=== PATIENT | female | born 1935 | race Caucasian/White ===

== ENCOUNTER 2023-08-20 14:13 | Inpatient (IN) | payer OTHER ==
[2023-08-20 14:30] VITALS: BMI 28.3
[2023-08-20] MEDS ORDERED: NITROGLYCERIN SUBLINGUAL 1/150 0.4 MG TAB SL ONE (16:32)
[2023-08-20] MEDS ORDERED: LIDOCAINE 5% TOPICAL PATCH TP ONE (16:33)
[2023-08-20] MEDS ORDERED: ASPIRIN 81 MG CHEWABLE TABLETS PO ONE (16:33)
[2023-08-20] MEDS ORDERED: ASPIRIN 81 MG CHEWABLE TABLETS ONE (16:40)
[2023-08-20] MEDS ORDERED: NITROGLYCERIN SUBLINGUAL 1/150 0.4 MG TAB ONE (16:41)
[2023-08-20] MEDS ORDERED: LIDOCAINE 4% PATCH TP ONE (16:41)
[2023-08-20 17:01] LABS: BASO % 0.4 % (0-2.0); EOS % 1.6 % (0-4.5); HEMATOCRIT 34.7 % (32.4-45.2); HEMOGLOBIN 11.8 GM/dL (10.7-15.3); LYMPH % 14.5 % (8-40); MCH 31.8 pg (25.7-33.7); MEAN CELL VOLUME 93.5 fl (80-96); MEAN PLT VOLUME 8.6 fl (7.5-11.1); NEUT % 76.5 % (42.8-82.8); PLATELET COUNT 291 10^3/uL (134-434); RBC 3.71 M/mm3 (3.60-5.2); RDW 13.6 % (11.6-15.6); WHITE BLOOD COUNT 11.7 K/mm3 (4.0-10.0)
[2023-08-20 17:09] LABS: INR 1.07 (0.83-1.09); PROTHROMBIN TIME (PATIENT) 12.4 SEC (9.7-13.0)
[2023-08-20 17:11] LABS: ACTIVATED PTT 31.8 SECONDS (25.2-36.5)
[2023-08-20 17:21] LABS: POTASSIUM 4.6 mmol/L (3.5-5.1)
[2023-08-20 17:23] LABS: CALCIUM 10.2 mg/dL (8.5-10.1)
[2023-08-20 17:24] LABS: ALBUMIN 3.8 g/dl (3.4-5.0); BLOOD UREA NITROGEN 25.6 mg/dL (7-18); MAGNESIUM 2.5 mg/dL (1.8-2.4)
[2023-08-20 17:27] LABS: CREATININE 1.2 mg/dL (0.55-1.3)
[2023-08-20 17:29] LABS: BILIRUBIN,TOTAL 0.4 mg/dL (0.2-1); TOT PROT 6.6 g/dl (6.4-8.2)
[2023-08-20] MEDS ORDERED: ATORVASTATIN CA 80 MG TABLET (FP) ONE (21:46)
[2023-08-20] MEDS: traMADol HCL 50 MG TABLET PO PRN (21:50)
[2023-08-20] MEDS: ACETAMINOPHEN 1000 MG/100 ML BAG IVPB PRN (21:50)
[2023-08-20] MEDS ORDERED: ACETAMINOPHEN INJECTION 100 ML IVPB ONE (21:51)
[2023-08-20] MEDS ORDERED: ATORVASTATIN CA 80 MG TABLET (FP) PO SCH (22:00)
[2023-08-21] MEDS: ACETAMINOPHEN 1000 MG/100 ML BAG IVPB PRN (04:00)
[2023-08-21] MEDS ORDERED: ACETAMINOPHEN INJECTION 100 ML IVPB ONE (04:02)
[2023-08-21 05:03] LABS: EPI CELLS 6 /uL (0-25.1); HYALINE CASTS 2 /uL (0-3.1); PH,URINE 5.5 (5.0-8.0); URINE APPEARANCE CLEAR; URINE BACTERIA 180 /uL (0-1359); URINE BILIRUBIN NEGATIVE (NEGATIVE); URINE COLOR YELLOW; URINE GLUCOSE (UA) NEGATIVE (NEGATIVE); URINE KETONE TRACE (NEGATIVE); URINE LEUK ESTERASE 3+ (NEGATIVE); URINE NITRITE NEGATIVE (NEGATIVE); URINE PROTEIN NEGATIVE (NEGATIVE); URINE RBC 7 /uL (0-23.9); URINE UROBILINOGEN 0.2 mg/dL (0.2-1.0); URINE WBC 608 /uL (0-25.8)
[2023-08-21] MEDS ORDERED: PATIENT'S OWN MEDICATION (NON-FORMULARY) (Telmisartan/Hydrochlorothiazid [Telmisartan-Hctz PO SCH ×2 (05:15→10:00)
[2023-08-21] MEDS ORDERED: CARVEDILOL 12.5 MG TABLET (FP) PO SCH ×2 (05:45→10:00)
[2023-08-21] MEDS ORDERED: CARVEDILOL 12.5 MG TABLET (FP) ONE (05:57)
[2023-08-21] MEDS ORDERED: traMADol HCL 50 MG TABLET ONE ×2 (05:57→17:35)
[2023-08-21] MEDS ORDERED: LOSARTAN POTASSIUM 50 MG TABLET PO SCH ×2 (05:57→10:00)
[2023-08-21] MEDS: traMADol HCL 50 MG TABLET PO PRN ×2 (06:00→17:40)
[2023-08-21] MEDS ORDERED: CARVEDILOL 12.5 MG TABLET (FP) PO ONE (06:06)
[2023-08-21 08:02] LABS: BASO % 0.4 % (0-2.0); EOS % 2.3 % (0-4.5); HEMATOCRIT 34.8 % (32.4-45.2); HEMOGLOBIN 11.4 GM/dL (10.7-15.3); MCH 31.5 pg (25.7-33.7); MCHC 32.9 g/dl (32.0-36.0); MEAN CELL VOLUME 95.6 fl (80-96); MONO % 8.2 % (3.8-10.2); NEUT % 72.1 % (42.8-82.8); PLATELET COUNT 293 10^3/uL (134-434); RBC 3.64 M/mm3 (3.60-5.2); RDW 13.3 % (11.6-15.6); WHITE BLOOD COUNT 9.6 K/mm3 (4.0-10.0)
[2023-08-21 08:22] LABS: POTASSIUM 4.7 mmol/L (3.5-5.1)
[2023-08-21 08:31] LABS: ALBUMIN 3.4 g/dl (3.4-5.0); BLOOD UREA NITROGEN 24.9 mg/dL (7-18); CALCIUM 8.9 mg/dL (8.5-10.1); MAGNESIUM 2.3 mg/dL (1.8-2.4)
[2023-08-21 08:32] LABS: BILIRUBIN,TOTAL 0.4 mg/dL (0.2-1); TOT PROT 6.2 g/dl (6.4-8.2)
[2023-08-21 08:34] LABS: CREATININE 1.2 mg/dL (0.55-1.3); PHOSPHOROUS 3.7 mg/dL (2.5-4.9)
[2023-08-21] MEDS ORDERED: HYDROCHLOROTHIAZIDE 25 MG TABLET (FP) ONE (09:08)
[2023-08-21] MEDS ORDERED: LOSARTAN POTASSIUM 50 MG TABLET ONE ×2 (09:08→09:09)
[2023-08-21] MEDS ORDERED: TOPIRAMATE 25 MG TABLET ONE (09:08)
[2023-08-21] MEDS ORDERED: ASPIRIN 81 MG CHEWABLE TABLETS ONE (09:08)
[2023-08-21] MEDS ORDERED: ENOXAPARIN NA (PORCINE) 40 MG/0.4 ML DISP.SYRIN SQ ONE (09:09)
[2023-08-21 09:40] VITALS: RESP 18
[2023-08-21] MEDS ORDERED: ASPIRIN 81 MG CHEWABLE TABLETS PO SCH (10:00)
[2023-08-21] MEDS ORDERED: HYDROCHLOROTHIAZIDE 12.5 MG CAPSULE (FP) PO SCH (10:00)
[2023-08-21] MEDS ORDERED: metoPROLOL SUCCINATE 25 MG TAB.SR.24H (FP) PO SCH (10:00)
[2023-08-21] MEDS ORDERED: ENOXAPARIN NA (PORCINE) 40 MG/0.4 ML DISP.SYRIN SQ SCH (10:00)
[2023-08-21] MEDS ORDERED: LIDOCAINE 4% PATCH TP SCH (14:30)
[2023-08-21] MEDS ORDERED: LIDOCAINE 4% PATCH TP ONE (15:04)
[2023-08-21 15:49] VITALS: BP 132/64; PULSE 82; TEMP 98.7
[2023-08-21] MEDS ORDERED: NITROFURANTOIN MONOHYD/M-CRYST 100 MG CAPSULE PO SCH ×2 (20:45→22:00)
[2023-08-21] MEDS ORDERED: LIDOCAINE PATCH REMOVAL MC SCH (22:00)
== END 2023-08-21 06:40 | disposition home or self-care (01) | DRG 313 ==
LOC: JER 14:13 → JERBED 19:02 → OBSVTOIN 21:25
PROVIDERS: ADMIT Student in an Organized Health Care Education/Training Program; ATTEND Family Medicine
DX: R07.89 Other chest pain (principal); N39.0 Urinary tract infection, site not specified; M79.18 Myalgia, other site; I10 Essential (primary) hypertension; I25.10 Atherosclerotic heart disease of native coronary artery without angina pectoris; Z95.1 Presence of aortocoronary bypass graft; E11.9 Type 2 diabetes mellitus without complications; E78.5 Hyperlipidemia, unspecified; M54.50 Low back pain, unspecified; M48.00 Spinal stenosis, site unspecified; M54.30 Sciatica, unspecified side
CPT/HCPCS: 36415; 71046-TC-FY; 80053; 80061; 81003; 82550; 83036; 83735; 84100; 84443; 84484; 85025; 85610; 85730; 93005; 93010; 93306-TC; 99285-25; G0378

== ENCOUNTER 2023-09-12 16:32 | Emergency (ER) | payer OTHER ==
[2023-09-12 17:05] VITALS: BP 159/78; PULSE 64; RESP 16; TEMP 98.9; BMI 25.4
[2023-09-12] MEDS ORDERED: ALBUTEROL SO4 2.5/IPRATROPIUM 0.5 INH SOL 3 ML VIAL.NEB. NEB ONE ×2 (17:07→17:42)
== END 2023-09-12 18:44 | disposition home or self-care (01) ==
LOC: FER 16:32
PROC: 3E0F7GC Introduction of Other Therapeutic Substance into Respiratory Tract, Via Natural or Artificial Opening (ICD-10-PCS; principal; 2023-09-12)
DX: R05.9 Cough, unspecified (principal); U07.1 COVID-19
CPT/HCPCS: 0241U-QW; 71046-TC-FY; 81003; 81015; 87086; 87186; 99284-25

== ENCOUNTER 2025-05-12 10:45 | Inpatient (IN) | payer OTHER ==
[2025-05-12] MEDS: ASPIRIN 81 MG CHEWABLE TABLETS PO ONE (11:15)
[2025-05-12 12:58] LABS: ABSOLUTE IMMATURE GRANULOCYTES 0.03 x10^3/uL (0.0-0.031); BASOPHILS # 0.04 x10^3/uL (0.01-0.08); EOSINOPHIL % 0.5 % (0.7-5.8); EOSINOPHILS # 0.06 x10^3/uL (0.04-0.36); MCHC 33.2 g/dl (32.2-35.5); MEAN CELL VOLUME 97.2 fl (79.4-94.8); MEAN PLT VOLUME 10.9 fl (9.4-12.3); MONOCYTE # 0.45 x10^3/uL (0.24-0.86); MONOCYTE % 4.0 % (4.7-12.5); RDW 12.9 % (12.5-17.0)
[2025-05-12 13:32] LABS: CO2 28.0 mmol/L (21-32); GLUCOSE,RANDOM 145.0 mg/dL (74-106)
[2025-05-12 13:35] LABS: CREATININE 1.2 mg/dL (0.55-1.3); SGOT/AST 14.0 U/L (15-37); SGPT/ALT 17.0 U/L (13-61)
[2025-05-12 13:38] LABS: ALK PHOS 92.0 U/L (45-117); TOT PROT 6.8 g/dl (6.4-8.2)
[2025-05-12] MEDS ORDERED: MECLIZINE HCL 12.5 MG TABLET ONE (15:07)
[2025-05-12 15:09] LABS: EPI CELLS >36 /uL (0-25.1); HYALINE CASTS 0 /uL (0-3.1); URINE APPEARANCE CLEAR; URINE BACTERIA 819 /uL (0-1359); URINE BILIRUBIN NEGATIVE (NEGATIVE); URINE COLOR YELLOW; URINE GLUCOSE (UA) NEGATIVE (NEGATIVE); URINE KETONE NEGATIVE (NEGATIVE); URINE LEUK ESTERASE 3+ (NEGATIVE); URINE NITRITE NEGATIVE (NEGATIVE); URINE PROTEIN TRACE (NEGATIVE); URINE UROBILINOGEN 0.2 mg/dL (0.2-1.0); URINE WBC 96 /uL (0-25.8)
[2025-05-12 15:12] LABS: URINE RBC 40 /uL (0-23.9)
[2025-05-12] MEDS: MECLIZINE HCL 12.5 MG TABLET PO ONE (15:13)
[2025-05-12 18:56] LABS: HCV DIAGNOSTIC IN-HOUSE W/RFLX NON-REACTIVE (NONREACTIVE)
[2025-05-12 19:00] LABS: HIV INTERPRETATION NEGATIVE (NEGATIVE)
[2025-05-12] MEDS ORDERED: CEFTRIAXONE 1 GM/50 ML BAG ONE (20:04)
[2025-05-12] MEDS: CEFTRIAXONE 1 GM in DEXTROSE 5%-WATER - 50 ML IVPB ONE (20:24)
[2025-05-12 22:53] VITALS: BMI 29.2
[2025-05-13 05:59] VITALS: RESP 18
[2025-05-13 10:47] LABS: ABSOLUTE IMMATURE GRANULOCYTES 0.02 x10^3/uL (0.0-0.031); BASOPHILS # 0.04 x10^3/uL (0.01-0.08); EOSINOPHIL % 2.8 % (0.7-5.8); EOSINOPHILS # 0.22 x10^3/uL (0.04-0.36); MCHC 33.2 g/dl (32.2-35.5); MEAN CELL VOLUME 98.0 fl (79.4-94.8); MEAN PLT VOLUME 11.1 fl (9.4-12.3); MONOCYTE # 0.70 x10^3/uL (0.24-0.86); MONOCYTE % 9.0 % (4.7-12.5); RDW 13.1 % (12.5-17.0)
[2025-05-13 11:21] LABS: CO2 31.0 mmol/L (21-32); GLUCOSE,RANDOM 185.0 mg/dL (74-106)
[2025-05-13 11:24] LABS: CREATININE 1.4 mg/dL (0.55-1.3); SGOT/AST 12.0 U/L (15-37); SGPT/ALT 19.0 U/L (13-61)
[2025-05-13 11:26] LABS: TOT PROT 6.3 g/dl (6.4-8.2)
[2025-05-13 11:27] LABS: ALK PHOS 91.0 U/L (45-117)
[2025-05-13 11:29] LABS: N-TERMINAL BNP 420.9 pg/ml (5-450)
[2025-05-13] MEDS ORDERED: CEFTRIAXONE 1 GM in DEXTROSE 5%-WATER - 50 ML IVPB SCH (12:06)
[2025-05-13] MEDS: CEFTRIAXONE 1 GM in DEXTROSE 5%-WATER - 50 ML IVPB SCH (14:06)
[2025-05-13] MEDS: amLODIPine BESYLATE 5 MG TABLET (FP) PO ONE ×2 (14:24→14:57)
[2025-05-13] MEDS: CEFTRIAXONE 1,000 MG in DEXTROSE 5%-WATER - 50 ML IVPB SCH (14:57)
[2025-05-13 18:02] VITALS: BP 166/65; PULSE 64; TEMP 97.9
== END 2025-05-13 18:00 | disposition home or self-care (01) | DRG 55 ==
LOC: JER 10:45 → JERBED 17:48 → J4S 21:16
PROVIDERS: ADMIT Family Medicine; ATTEND Family Medicine
DX: D32.9 Benign neoplasm of meninges, unspecified (principal); R90.0 Intracranial space-occupying lesion found on diagnostic imaging of central nervous system; R42 Dizziness and giddiness; E11.22 Type 2 diabetes mellitus with diabetic chronic kidney disease; I12.9 Hypertensive chronic kidney disease with stage 1 through stage 4 chronic kidney disease, or unspecified chronic kidney disease; I25.10 Atherosclerotic heart disease of native coronary artery without angina pectoris; M48.061 Spinal stenosis, lumbar region without neurogenic claudication; N18.31 Chronic kidney disease, stage 3a
CPT/HCPCS: 36415; 70450-TC; 70496-TC; 70498-TC; 70551-TC; 71045-TC-FY; 80053; 81003; 83735; 83880; 84100; 84443; 84484; 85025; 86803; 86850; 86900; 86901; 87086; 87389; 93005; 93010; 93306-TC; 99285-25; Q9967